=== PATIENT | female | born 1950 | race Caucasian/White ===

== ENCOUNTER → 2021-06-11 | Day surgery (SDC) | payer MEDICARE, BC ==
[2021-06-09 14:23] LABS: BASOPHILS % 0.5 % (0.0-1.0); EOSINOPHILS # (AUTO) 0.3 (0.0-0.4); EOSINOPHILS % 4.2 % (0.0-6.0); HEMATOCRIT 32.7 % (34.2-44.1); HEMOGLOBIN 10.5 g/dL (12.0-16.0); LYMPHOCYTES # (AUTO) 1.9 (1.0-3.2); LYMPHOCYTES % 31.6 % (18.0-39.1); MEAN CORPUSCULAR HEMOGLOBIN 29.9 pg (28-32); MEAN CORPUSCULAR HGB CONC 32.1 g/dL (31-35); MEAN CORPUSCULAR VOLUME 93.2 fL (81-99); MONOCYTES # (AUTO) 0.5 (0.2-0.8); MONOCYTES % 8.3 % (4.4-11.3); NEUTROPHILS # (AUTO) 3.3 (2.1-6.9); NEUTROPHILS % 55.2 % (38.7-80.0); PLATELET COUNT 245 x10e3/uL (140-360); RED BLOOD COUNT 3.51 x10e6/uL (3.6-5.1)
[~2021-06-11] MED LIST: ASPIRIN81 MG PO; BUMETANIDE1 MG PO; CITALOPRAM HBR20 MG PO; CRESTOR10 MG PO; FERROUS SULFAT324 MG PO; GABAPENTIN300 MG PO; GLIPIZIDE ER5 MG PO; JANUMET 50-1,01 EACH PO; LOSARTAN POTAS100 MG PO; MIRAPEX0.25 MG PO; OXYBUTYNIN CHLOR5 M1 PO; PLAVIX75 MG PO; VIT B COMPLEX
[2021-06-11 14:47] VITALS: BP 146/68
[2021-06-11 15:31] LABS: % IRON SATURATION 11 % (15-50); IRON 47 ug/dL (50-170); TOTAL IRON BINDING CAPACITY 416 ug/dL (261-478); TRANSFERRIN 297 mg/dL (180-382)
== END | disposition home or self-care (01) ==
LOC: OR 10:26
PROVIDERS: ATTEND Internal Medicine Gastroenterology
DX: K20.90 Esophagitis, unspecified without bleeding (principal); K64.8 Other hemorrhoids; K29.50 Unspecified chronic gastritis without bleeding; D12.7 Benign neoplasm of rectosigmoid junction; D12.2 Benign neoplasm of ascending colon; D12.0 Benign neoplasm of cecum; D12.4 Benign neoplasm of descending colon; K57.30 Diverticulosis of large intestine without perforation or abscess without bleeding; D64.9 Anemia, unspecified; Z86.010 Personal history of colon polyps; Z88.1 Allergy status to other antibiotic agents; Z88.2 Allergy status to sulfonamides; E11.9 Type 2 diabetes mellitus without complications; K76.0 Fatty (change of) liver, not elsewhere classified; K85.90 Acute pancreatitis without necrosis or infection, unspecified; K21.9 Gastro-esophageal reflux disease without esophagitis; F41.9 Anxiety disorder, unspecified; J44.9 Chronic obstructive pulmonary disease, unspecified; I25.10 Atherosclerotic heart disease of native coronary artery without angina pectoris; I10 Essential (primary) hypertension; Z95.5 Presence of coronary angioplasty implant and graft; Z01.810 Encounter for preprocedural cardiovascular examination; Z01.812 Encounter for preprocedural laboratory examination; Z20.822 Contact with and (suspected) exposure to COVID-19; Z79.82 Long term (current) use of aspirin; Z79.84 Long term (current) use of oral hypoglycemic drugs
CPT/HCPCS: 36415 ×2; 43239; 45380; 45385; 82607; 82746; 82948; 83540; 84466; 85025; 85045; 88305; 88312; 93005; U0002; 45378; 45384

== ENCOUNTER → 2022-07-01 | Outpatient (CLI) | payer MEDICARE, BC | LOC: US 09:33 | PROVIDERS: ATTEND Internal Medicine Gastroenterology | DX: R10.10 Upper abdominal pain, unspecified (principal) | CPT/HCPCS: 76700 ==

== ENCOUNTER → 2022-09-30 | Outpatient (CLI) | payer MEDICARE, BC | LOC: RAD 07:10 | PROVIDERS: ATTEND Internal Medicine Hematology & Oncology | DX: C90.00 Multiple myeloma not having achieved remission (principal) | CPT/HCPCS: 77075 ==

== ENCOUNTER → 2024-06-22 | Day surgery (SDC) | payer MEDICARE, BC ==
[~2024-06-22] MED LIST changes: +CENTRUM SILVER1 EAC3 PO; +EVOXAC30 MG PO; +IRON INJECTION; +LEXAPRO20 MG PO; +LIDOCAINE HCL 2% LOCAL INJ 5 ML SDV VIAL INJ ONE; +MAGNESIUM250 M1 PO; +OXYBUTYNIN CHLO10 MG PO; +PANTOPRAZOLE SO40 MG PO; +PROBIOTIC & AC1 EACH PO; +PROPOFOL IV EMULSION 10 MG/ML 20 ML VIAL ONE; +ZETIA10 MG PO
[2024-06-22] MEDS: LACTATED RINGER'S 1,000 ML ONE (11:58)
[2024-06-22 12:58] VITALS: TEMP 98
[2024-06-22 13:25] VITALS: BP 112/60; PULSE 63; RESP 15; O2SAT 96
== END | disposition home or self-care (01) ==
LOC: ENDO 11:36
PROVIDERS: ATTEND Internal Medicine Gastroenterology
DX: K20.90 Esophagitis, unspecified without bleeding (principal); K29.70 Gastritis, unspecified, without bleeding; K22.89 Other specified disease of esophagus; K21.9 Gastro-esophageal reflux disease without esophagitis; Z71.3 Dietary counseling and surveillance; D64.9 Anemia, unspecified; E11.9 Type 2 diabetes mellitus without complications; I10 Essential (primary) hypertension; Z71.89 Other specified counseling; I25.10 Atherosclerotic heart disease of native coronary artery without angina pectoris; E78.5 Hyperlipidemia, unspecified; J44.9 Chronic obstructive pulmonary disease, unspecified; G25.81 Restless legs syndrome; F32.A Depression, unspecified; Z72.0 Tobacco use; Z88.1 Allergy status to other antibiotic agents; Z88.0 Allergy status to penicillin; Z88.2 Allergy status to sulfonamides; Z88.8 Allergy status to other drugs, medicaments and biological substances; Z79.84 Long term (current) use of oral hypoglycemic drugs; Z79.82 Long term (current) use of aspirin
CPT/HCPCS: 43251; 43450; 88305; J2001; J2470; J2704; J7121; 43239

== ENCOUNTER → 2025-05-07 | Day surgery (SDC) | payer MEDICARE, BC ==
[2025-05-01 12:42] LABS: BASOPHILS % 0.5 % (0.0-1.0); EOSINOPHILS % 2.1 % (0.0-6.0); LYMPHOCYTES % 9.6 % (18.0-39.1); MONOCYTES % 7.4 % (4.4-11.3); NEUTROPHILS % 79.6 % (38.7-80.0); RED CELL DISTRIBUTION WIDTH 15.2 % (11.7-14.4)
[~2025-05-07] MED LIST changes: +ACETAMINOPHEN325 M1 PO; +ALLOPURINOL100 MG PO; +BIOTIN2500 MCG PO; +FENTANYL CITRATE/PF 100MCG/2 ML INJ ONE; +PREDNISONE10 MG PO; +TIZANIDINE HCL4 M1 PO; +VITAMIN B-121000 MC2 PO
[2025-05-07] MEDS: LACTATED RINGER'S 1,000 ML ONE (05:36)
[2025-05-07 07:50] VITALS: TEMP 97.9
[2025-05-07 08:20] VITALS: BP 131/65; PULSE 84; RESP 17; O2SAT 98
== END | disposition home or self-care (01) ==
LOC: ENDO 05:19
PROVIDERS: ATTEND Internal Medicine Gastroenterology
DX: K22.2 Esophageal obstruction (principal); K29.50 Unspecified chronic gastritis without bleeding; K31.7 Polyp of stomach and duodenum; K21.9 Gastro-esophageal reflux disease without esophagitis; R13.10 Dysphagia, unspecified; I10 Essential (primary) hypertension; I25.10 Atherosclerotic heart disease of native coronary artery without angina pectoris; Z95.5 Presence of coronary angioplasty implant and graft; J44.9 Chronic obstructive pulmonary disease, unspecified; E11.9 Type 2 diabetes mellitus without complications; Z79.84 Long term (current) use of oral hypoglycemic drugs; E78.00 Pure hypercholesterolemia, unspecified; D64.9 Anemia, unspecified; G25.81 Restless legs syndrome; F32.A Depression, unspecified; Z87.11 Personal history of peptic ulcer disease; Z79.899 Other long term (current) drug therapy
CPT/HCPCS: 36415 ×2; 43239; 43251; 43450; 82948; 85025; 88305; J2003; J2470; J2704; J3010; J7121